=== PATIENT | female | born 1985 | race Caucasian/White ===

== ENCOUNTER → 2016-12-13 21:16 | Outpatient (CLI) | payer MEDICAID ==
[2016-12-13 21:41] LABS: AMORPHOUS SEDIMENT <1+ /lpf (NONE SEEN); APPEARANCE HAZY (CLEAR); BACTERIA MODERATE /hpf (NONE SEEN); BILIRUBIN NEGATIVE (NEGATIVE); COLOR YELLOW (YELLOW); GLUCOSE NEGATIVE (NEGATIVE); KETONE MODERATE mg/dL (NEGATIVE); LEUKOCYTE ESTERASE TRACE (NEGATIVE); MUCUS <1+ /lpf (NONE SEEN); NITRITE NEGATIVE (NEGATIVE); PROTEIN NEGATIVE (NEGATIVE); RED CELLS - URINE 0-5 /hpf (0-5); SPECIFIC GRAVITY 1.015 (1.005-1.020); UROBILINOGEN NORMAL (NORMAL)
== END | disposition home or self-care (01) ==
LOC: D.LDO 21:16
PROVIDERS: Obstetrics & Gynecology
DX: Z34.82 Encounter for supervision of other normal pregnancy, second trimester (principal); Z3A.22 22 weeks gestation of pregnancy; M54.5 Low back pain; R10.30 Lower abdominal pain, unspecified

== ENCOUNTER → 2017-02-18 11:54 | Outpatient (CLI) | payer MEDICAID | END | disposition home or self-care (01) | LOC: D.LDO 11:54 | DX: O24.419 Gestational diabetes mellitus in pregnancy, unspecified control (principal); Z3A.32 32 weeks gestation of pregnancy ==

== ENCOUNTER → 2017-02-21 16:11 | Outpatient (CLI) | payer MEDICAID | END | disposition home or self-care (01) | LOC: D.LDO 16:11 | DX: O24.419 Gestational diabetes mellitus in pregnancy, unspecified control (principal); Z3A.32 32 weeks gestation of pregnancy ==

== ENCOUNTER → 2017-02-25 16:58 | Outpatient (CLI) | payer MEDICAID | END | disposition home or self-care (01) | LOC: D.LDO 16:58 | DX: O24.419 Gestational diabetes mellitus in pregnancy, unspecified control (principal); O36.8130 Decreased fetal movements, third trimester, not applicable or unspecified; Z3A.33 33 weeks gestation of pregnancy ==

== ENCOUNTER → 2017-02-28 21:00 | Outpatient (CLI) | payer MEDICAID | END | disposition home or self-care (01) | LOC: D.LDO 21:00 | DX: O24.913 Unspecified diabetes mellitus in pregnancy, third trimester (principal); Z3A.33 33 weeks gestation of pregnancy ==

== ENCOUNTER → 2017-03-04 18:19 | Outpatient (CLI) | payer MEDICAID | END | disposition home or self-care (01) | LOC: D.LDO 18:19 | DX: O24.419 Gestational diabetes mellitus in pregnancy, unspecified control (principal); Z3A.34 34 weeks gestation of pregnancy ==

== ENCOUNTER → 2017-03-07 15:47 | Outpatient (CLI) | payer MEDICAID | END | disposition home or self-care (01) | LOC: D.LDO 15:47 | DX: O24.913 Unspecified diabetes mellitus in pregnancy, third trimester (principal); Z3A.34 34 weeks gestation of pregnancy ==

== ENCOUNTER → 2017-03-11 10:26 | Outpatient (CLI) | payer MEDICAID | END | disposition home or self-care (01) | LOC: D.LDO 10:26 | DX: Z34.90 Encounter for supervision of normal pregnancy, unspecified, unspecified trimester (principal) ==

== ENCOUNTER → 2017-03-14 18:53 | Outpatient (CLI) | payer MEDICAID | END | disposition home or self-care (01) | LOC: D.LDO 18:53 | DX: O24.913 Unspecified diabetes mellitus in pregnancy, third trimester (principal); Z3A.35 35 weeks gestation of pregnancy ==

== ENCOUNTER 2017-03-18 19:04 | Outpatient (CLI) | payer MEDICAID | END 2017-03-18 19:59 | disposition home or self-care (01) | LOC: D.LDO 19:04 | DX: O24.913 Unspecified diabetes mellitus in pregnancy, third trimester (principal); Z3A.36 36 weeks gestation of pregnancy ==

== ENCOUNTER → 2017-03-21 19:09 | Outpatient (CLI) | payer MEDICAID ==
[~2017-03-21 19:09] MED LIST: GLUCOPHAGE500 MG PO; PRENATAL COMPLE1 TAB PO
== END | disposition home or self-care (01) ==
LOC: D.LDO 19:09
DX: O24.419 Gestational diabetes mellitus in pregnancy, unspecified control (principal); Z3A.00 Weeks of gestation of pregnancy not specified

== ENCOUNTER → 2017-03-26 15:00 | Outpatient (CLI) | payer MEDICAID | END | disposition home or self-care (01) | LOC: D.LDO 15:00 | DX: O24.419 Gestational diabetes mellitus in pregnancy, unspecified control (principal); Z3A.37 37 weeks gestation of pregnancy ==

== ENCOUNTER → 2017-03-28 19:37 | Outpatient (CLI) | payer MEDICAID | END | disposition home or self-care (01) | LOC: D.LDO 19:37 | DX: O24.419 Gestational diabetes mellitus in pregnancy, unspecified control (principal); Z3A.37 37 weeks gestation of pregnancy ==

== ENCOUNTER → 2017-04-01 14:19 | Outpatient (CLI) | payer MEDICAID | END | disposition home or self-care (01) | LOC: D.LDO 14:19 → D.LABREF 14:19 | DX: O24.419 Gestational diabetes mellitus in pregnancy, unspecified control (principal); Z3A.38 38 weeks gestation of pregnancy ==

== ENCOUNTER 2017-04-04 07:21 | Inpatient (IN) | payer MEDICAID ==
[2017-04-04 07:39] VITALS: BP 147/67; BMI 36.0
[2017-04-04 08:34] LABS: APPEARANCE CLOUDY (CLEAR); BILIRUBIN NEGATIVE (NEGATIVE); COLOR YELLOW (YELLOW); GLUCOSE 250 mg/dL (NEGATIVE); KETONE NEGATIVE (NEGATIVE); NITRITE NEGATIVE (NEGATIVE); PROTEIN 1+ mg/dL (NEGATIVE); SPECIFIC GRAVITY 1.015 (1.005-1.020); UROBILINOGEN NORMAL (NORMAL)
[2017-04-04 08:40] LABS: BACTERIA MODERATE /hpf (NONE SEEN); MUCUS <1+ /lpf (NONE SEEN); WHITE CELLS - URINE 0-5 /hpf (0-5)
[2017-04-04 09:09] LABS: HEMATOCRIT 35.8 % (36.0-48.0); HEMOGLOBIN 11.5 g/dL (12-16); MCH 26.6 pg (26.0-34.0); MCHC 32.1 g/dL (31.0-37.0); MCV 82.7 fL (80.0-100.0); MEAN PLATELET VOLUME 10.6 fL (7.4-10.4); RBC 4.33 10x6/uL (4.00-5.40); WBC 17.1 10x3/uL (4.8-10.8)
[2017-04-04 12:53] LABS: CALC OSMOLALITY 271 mosm/kg (275-300); CALCIUM 8.9 mg/dL (8.5-10.1); CHLORIDE - SERUM 105 mmol/L (98-107); CREATININE - SERUM 0.7 mg/dL (0.6-1.3); GLUCOSE 87 mg/dL (74-106); POTASSIUM - SERUM 3.9 mmol/L (3.5-5.1); SODIUM 137 mmol/L (136-145); UREA NITROGEN 9 mg/dL (7-18); URIC ACID 4.4 mg/dL (2.6-7.2); eGFR NON AFRICAN AMERICAN > 90 mL/min (90-120)
--- NOTE | 2017-04-04 18:40 | NUR ---
BABY TO ROOM, PT IS AT THIS TIME. DENIES OTHER NEEDS. SR UP X 2, CALL LIGHT AND PHONE WITHIN REACH.
[2017-04-04 19:25] VITALS: BP 131/67
--- NOTE | 2017-04-04 20:16 | NUR ---
PT RINGS CALL LIGHT. THIS RN TO BEDSIDE. PT REQUEST BE TRANSPORTED TO NBN PER NBN NURSE REQUEST. PT DENIES NEEDS AT THIS TIME. INFANT TRANSPORTED VIA CRIB TO NBN.
--- NOTE | 2017-04-04 21:00 | NUR ---
INFANT TRANSPORTED VIA CRIB TO [facility] WHILE [facility]. PT [facility]ED [facility]. OBTAINED FROM [facility] W/ID BANDS VERIFIED PER PROTOCOL. PT AND SPOUSE ORIENTENTED TO ROOM, CALL LIGHT,PHONE NUMBERS, TV REMOTE. PP TREAT BOX AND [facility]UG FILLED W/FRESH ICE WATER SERVED. PT HAS EXTRA PANTIES,PADS AND CLEAN GOWN IN BATHROOM. CLEAN PILLOW,SHEET AND BLANKET PROVIDED FOR SPOUSE. PT DENIES NEEDS AT THIS TIME. PAIN ASSESSED. PT REPORTS ABD CRAMPING BEGINNING TO RETURN. RATES 08/31. PT INFORMED THAT SHE MAY HAVE HER NEXT DOSE OF TORADOL AT 0. PT REQUEST MED TO BE BROUGHT TO HER AT THAT TIME. NO FURTHER NEEDS VOICED AT THIS TIME.
--- NOTE | 2017-04-04 21:55 | NUR ---
TORADOL 10MG PO GIVEN FOR PT'S C/O ABD CRAMPING PAIN THAT SHE RATES 4/10. PT ENCOURAGED TO ATTEMPT NURSING AT THIS TIME. PT QUESTIONS WHAT IF INFANT WON'T LATCH TO HER LEFT BREAST BEFORE. THIS RN TO NBN TO SPEAK W/NBN NURSE. NBN Jimy OATES RN INFORMS THIS RN INFANT NEEDS A BLOOD SUGAR CHECK PRIOR TO NURSING. INFANT TRANSPORTED VIA CRIB TO NBN PER THIS RN. BS OBTAINED. RESULTS 56. INFANT DIAPER CHANGED, INFANTS FACE WASHED W/COLD WIPE, INFANT STIMULATED. INFANT REMAINS QUIET W/EYES CLOSED. SWADDLED X 2. HAT ON. TRANSPORTED VIA LEONILA BRADLEY NURSE TO PT'S ROOM TO ATTEMPT ASSISTANCE W/GETTING INFANT TO LATCH ON.
--- NOTE | 2017-04-04 23:00 | NUR ---
ROUNDS MADE. PT SITTING UP IN BED W/INFANT UP IN ARMS. PAIN REASSESSED. PT REPORTS ABD CRAMPING IS GETTING BETTER. RATES 2/10. FRESH ICE WATER SERVED. DENIES FURTHER NEEDS AT THISTIME.
--- NOTE | 2017-04-05 | NUR ---
ROUNDS MADE. PT LYING IN BED W/LIGHTS TURNED DOWN. HAS BEEN SENT TO N FOR PT AND SPOUSE TO REST. NO NEEDS VOICED.
--- NOTE | 2017-04-05 01:50 | NUR ---
ROUNDS MADE. PT LYING TO LEFT SIDE. APPEARS TO BE SLEEPING. EYES CLOSED. RESP EVEN. NO SIGNS OF DISTRESS NOTED. INFANT IN CRIB AT BEDSIDE. PT LEFT UNDISTURBED AT THIS TIME.
--- NOTE | 2017-04-05 03:56 | NUR ---
ROUNDS MADE. PT SITTING UP IN BED TENDING TO NB. PT'S PAIN AND NEEDS ASSESSED. PT REQUEST FRESH ICE WATER AND PAIN MEDICATION. [facility] FILLED W/FRESH ICE WATER. TORADOL 10MG PO GIVEN. SEE EMAR. PT DENIES FURTHER NEEDS EXCEPT FOR NB TO BE RETURNED TO [facility] SO PT MAY CONTINUE TO REST. TRANSPORTED VIA CRIB TO [facility].
--- NOTE | 2017-04-05 04:45 | NUR ---
ROUNDS MADE. PT RESTING W/EYES CLOSED IN LOW KOENIG'S. RESP EVEN. NO DISTRESS NOTED. PT LEFT UNDISTURBED AT THIS TIME. PAIN REASSESSED USING FACE SCALE TO BE 0/10.
[2017-04-05 07:45] VITALS: BP 123/72
--- NOTE | 2017-04-05 08:04 | NUR ---
ASSESSMENT DONE- SITTING UP IN ED HOLDING INFANT. DENIES NEEDS.
[2017-04-05] MEDS ORDERED: PRENATAL COMPLE1 TAB PO (08:13)
[2017-04-05] MEDS ORDERED: GLUCOPHAGE500 MG PO (08:14)
[2017-04-05 08:21] LABS: RAPID PLASMA REAGIN Non Reactive (Non Reactive)
--- NOTE | 2017-04-05 10:15 | NUR ---
UP AND ABOUT IN ROOM. DENIES NEEDS. ICE WATER GIVEN.
--- NOTE | 2017-04-05 12:45 | NUR ---
DR BLACKWOOD IN UNIT TO SEE PT.
[2017-04-05 13:00] VITALS: BP 123/70
--- NOTE | 2017-04-05 13:23 | NUR ---
PT REQUESTING PAIN MEDICATION- RATES PAIN A 8 ON SCALE OF 0-10. STATES CRAMPING- MEDICATION GIVEN.
--- NOTE | 2017-04-05 13:30 | NUR ---
UP TO SHOWER- TOLERATED WELL.
--- NOTE | 2017-04-05 13:40 | OP ---
PATIENT NAME: RD SALINAS MEDICAL RECORD: [id number] :87 LOCATION:[id number] ADMISSION DATE:04/04/17 SURGEON: TIMOTHY SIMPSON MD DATE OF OPERATION: 04/04/2017 PREDELIVERY DIAGNOSES: 1. at term. 2. Spontaneous rupture of membrane. 3. Active labor. POSTDELIVERY DIAGNOSES: 1. Mother delivered a term. 2. Spontaneous rupture of membrane. 3. Active labor. PROCEDURE: Normal spontaneous vaginal delivery. ATTENDING: Timothy Simpson MD ANESTHETIC: Continuous lumbar epidural. FINDINGS: Viable female in an ADRIANNE presentation. Apgars were 8 and 9. Weight is still pending at the time of this dictation. The placenta is spontaneous and intact. First-degree laceration of the vagina with 4-0 chromic repair. EBL: 300 cc. DISPOSITION: Mother and infant recovered in the room. TRANSINT:[id number] Voice Confirmation ID: [id number] DOCUMENT ID: [id number] TIMOTHY SIMPSON MD at 1340 CC: [id number] DICTATION DATE: 04/04/17 1341 METAL SPINNER: 04/04/17 1420 ADM IN [facility] [address] [place] [address]
--- NOTE | 2017-04-05 14:02 | NUR ---
DR BLACKWOOD CALLS WITH DISCHARGE ORDER TO Tiffany CAMPO RN.
--- NOTE | 2017-04-05 15:40 | NUR ---
DISCHARGE INST VERBAL AND WRITTEN GIVEN. PT INSTRUCTED THAT MAY TAKE MOTRIN FOR PAIN AND TO FOLLOW DIRECTIONS ON LABEL PER VERBAL INST DR BLACKWOOD. PFW POST INST GIVEN. PT HEALTH SUMMARY GIVEN. DI FOR BREAST FEEDING, BREAST MILK STORAGE, AND POST VAGINAL DELIVERY GIVEN TO PT TO READ. PT DENIES ANY QUESTIONS.
--- NOTE | 2017-04-05 17:15 | NUR ---
PT STATES SHE IS READY TO LEAVE HOSPITAL. PT DISCHARGED WITH . TO AUTO VIA W/C.
--- NOTE | 2017-07-04 08:08 | DS ---
PATIENT:RITASEPTEMBER Nelly :89 MEDICAL RECORD: [id number] DISCHARGE SUMMARY ADMISSION DATE: 04/04/17 DISCHARGE DATE: 04/05/17 DATE OF ADMISSION: 04/04/2017. DATE OF DISCHARGE: 04/05/2017. ADMISSION DIAGNOSIS: at term. DISCHARGE DIAGNOSIS: Mother delivered at term. HISTORY OF PRESENT ILLNESS AND SUMMARY OF HOSPITALIZATION: See the history and physical in the chart. SUMMARY OF HOSPITALIZATION: The patient was admitted to labor and delivery and delivered without incident. At the time of discharge, the patient is doing well, tolerating p.o., and has adequate pain control. The patient will be discharged home on ibuprofen. The patient has been given the standard precautions and she will follow up in 4 weeks at [facility] with Dr. Pantoja. TRANSINT:[id number] Voice Confirmation ID: [id number] DOCUMENT ID: [id number] WARREN BLACKWOOD MD at 0808 CC: [id number] DICTATION DATE: 07/02/17 1628 HEDGE TRIMMER: 07/03/17 0810 DIS IN 04/05/17 [id number] [place] [address]
== END 2017-04-05 17:15 | disposition home or self-care (01) | DRG 775 ==
LOC: D.LD 07:21
PROVIDERS: Obstetrics & Gynecology; ADMIT Obstetrics & Gynecology
PROC: 10D07Z8 Extraction of Products of Conception, Other, Via Natural or Artificial Opening (ICD-10-PCS; principal; 2017-04-04)
PROC: 0HQ9XZZ Repair Perineum Skin, External Approach (ICD-10-PCS; 2017-04-04)
DX: O24.429 Gestational diabetes mellitus in childbirth, unspecified control (principal); O71.4 Obstetric high vaginal laceration alone; Z3A.38 38 weeks gestation of pregnancy; Z37.0 Single live birth